=== PATIENT | male | born 1960 | race Caucasian/White ===

== ENCOUNTER 2019-03-28 15:45 | Emergency (ER) | payer OTHER ==
[~2019-03-28] VITALS: Ht 177.8 cm; Wt 88.5 kg
[2019-03-28] MEDS ORDERED: GLYBURIDE 5 MG T5 M1 PO (16:06)
[2019-03-28] MEDS ORDERED: ZOCOR40 MG PO (16:06)
[2019-03-28] MEDS ORDERED: FENOFIBRIC ACI135 MG PO (16:07)
[2019-03-28] MEDS ORDERED: FARXIGA5 MG PO (16:07)
[2019-03-28] MEDS ORDERED: KOMBIGLYZE XR1 EACH PO (16:09)
[2019-03-28] MEDS ORDERED: PIOGLITAZONE15 MG (16:09)
[2019-03-28] MEDS ORDERED: KOMBIGLYZE XR1 EAC1 PO (16:09)
[2019-03-28] MEDS ORDERED: FARXIGA10 MG PO (16:10)
[2019-03-28 16:12] LABS: EOSINOPHILS 1.9 % (0.0-3.0); HEMATOCRIT 46.5 % (42.0-52.0); HEMOGLOBIN 15.8 gm/dL (14.0-18.0); LYMPHOCYTES 32.5 % (24.0-44.0); MCH 30.6 pg (26.0-34.0); MONOCYTES 7.3 % (1.0-8.0); PLATELET COUNT 255 thou/uL (150-400); POLYS 57.3 % (36.0-66.0); RBC 5.16 mil/uL (4.50-6.00); RDW 13.4 % (10.5-14.5)
[2019-03-28 16:21] LABS: CALCIUM 10.7 mg/dL (8.5-10.1); CREATININE 1.3 mg/dL (0.7-1.3); POTASSIUM 3.7 mmol/L (3.5-5.1)
[2019-03-28 16:26] LABS: ALBUMIN 4.8 g/dL (3.4-5.0); TOTAL BILIRUBIN 0.5 mg/dL (<0.1-1.0); TOTAL PROTEIN 8.8 g/dL (6.4-8.2)
[2019-03-28] MEDS ORDERED: ZOVIRAX400 MG PO (17:00)
[2019-03-28 17:36] VITALS: BP 104/75
== END 2019-03-28 17:40 | disposition home or self-care (01) ==
LOC: ER 15:45
PROVIDERS: Nurse Practitioner Family
DX: G51.0 Bell's palsy (principal)